=== PATIENT | male | born 1960 | race Native Hawaiian/Other Pacific Islander ===

== ENCOUNTER 2020-11-24 10:49 | Outpatient (CLI) | payer BC | END 2020-11-24 21:02 | disposition home or self-care (01) | LOC: RAD 10:49 | PROVIDERS: ATTEND Nurse Practitioner Primary Care | DX: M54.6 Pain in thoracic spine (principal) ==

== ENCOUNTER 2022-04-14 09:15 | Outpatient (CLI) | payer BC ==
[2022-04-14 17:00] LABS: SODIUM 138 mmol/L (136-145)
[2022-04-14 17:56] LABS: PLATELET COUNT 211 K/uL (142-355)
== END 2022-04-14 20:56 | disposition home or self-care (01) ==
LOC: RAD 09:15
PROVIDERS: ATTEND Nurse Practitioner Family
DX: M25.511 Pain in right shoulder (principal); E86.0 Dehydration; Z79.899 Other long term (current) drug therapy
CPT/HCPCS: 36415; 80053; 82550; 83036; 84484; 85027; 93005